=== PATIENT | female | born 1940 | race Caucasian/White ===

== ENCOUNTER 2016-07-09 23:38 | Emergency (ER) | payer MEDICARE ==
[~2016-07-09] VITALS: Ht 160 cm; Wt 63.4 kg
[2016-07-09 23:44] VITALS: BP 172/101; PULSE 100; RESP 20; TEMP 98.1; O2SAT 96
[2016-07-10 00:59] VITALS: BP 139/84
== END 2016-07-10 01:04 | disposition left against medical advice (07) ==
LOC: PHED 23:38
DX: R03.0 Elevated blood-pressure reading, without diagnosis of hypertension (principal)
CPT/HCPCS: 99281